=== PATIENT | female | born 1975 | race Caucasian/White ===

== ENCOUNTER → 2020-09-22 09:39 | Outpatient (CLI) | payer OTHER, SELFPAY ==
[2020-09-22 11:33] LABS: COVID19 -Nasal RAPID Negative (Negative)
== END ==
PROVIDERS: PCP General Practice; Visit Provider Surgery
DX: Z11.59 Encounter for screening for other viral diseases (principal)
CPT/HCPCS: 87635

== ENCOUNTER 2020-09-23 06:45 | Day surgery (SDC) | payer OTHER, SELFPAY ==
--- NOTE | 2020-09-23 | PATH_ITS ---
[facility] Accession Number: [id number] . 01 Material submitted: . PART A: duodenum - DUODENUM PART B: gastrointestinal site - STOMACH PART C: esophagus - DISTAL ESOPHAGUS . 01 Clinical history: . EGD/COLONOSCOPY . 02 Diagnosis: A. Duodenum, Biopsies: Duodenal mucosa with mildly increased intraepithelial lymphocytes and no significant blunting of the villous architecture. Please see comment. Negative for granulomas, dysplasia and malignancy. . B. Stomach, Biopsies: Antral mucosa with mild chronic gastritis and intestinal metaplasia. Negative for Helicobacter by immunohistochemistry. Negative for dysplasia and malignancy. . C. Distal Esophagus, Biopsy: Squamous mucosa with no diagnostic abnormality. Intraepithelial eosinophls are not increased. A PAS stain is negative for fungal organisms. Negative for dysplasia and malignancy. [facility] 09/28/2020 [facility] Local . 02 Comment: A. The duodenal mucosa shows essentially normal length villi with increased intraepithelial lymphocytes. The differential diagnosis of this variable villous abnormality includes partially treated or clinically latent celiac sprue, dermatitis herpetiformis, infectious gastroenteritis, stasis, tropical sprue, lymphocytic enterocolitis, or other protein allergies. In addition, similar small bowel histology can also be seen in patients with autoimmune disorders, idiopathic inflammatory bowel disease, and may be linked to the use of nonsteroidal anti-inflammatory drugs or Helicobacter pylori infection. There is no evidence of Whipple's disease and no obvious parasitic organisms are identified. . 02 Electronically signed: . Julissa Cerda MD, Pathologist NPI- [id number] . 01 Gross description: . A. Specimen A is received in formalin, labeled duodenum and consists of a 0.3 x 0.3 x 0.3 cm martin-pink fragment of soft tissue, which is entirely submitted in cassette A1. B. Specimen B is received in formalin, labeled stomach and consists of a 0.3 x 0.3 x 0.2 cm martin fragment of soft tissue, which is entirely submitted in cassette B1. C. Specimen C is received in formalin, labeled distal esophagus and consists of two martin-white fragments of soft tissue, measuring 0.3 x 0.3 x 0.2 cm in aggregate. The specimen is entirely submitted in cassette C1. (EA:[id number]) /[facility] 09/24/2020 [facility] . 02 Microscopic: . A. Additional levels were examined. . B. An immunohistochemical stain was performed to evaluate for Helicobacter organisms and is negative. The control stain showed appropriate reactivity. . C. An AB/PAS stain was performed to evaluate for fungal organisms and is negative. The control stain showed appropriate reactivity. . * This test was developed and its performance characteristics determined by [facility]. It has not been cleared or approved by the U.S. Food and Drug Administration. The FDA has determined that such clearance or approval is not necessary. This test is used for clinical purposes. It should not be regarded as investigational or for research. . 02 Pathologist provided ICD-10: D64.9, K92.9 . 02 CPT . 618696, 624508, 554010, 602026, O50170 Performed at: 01 [facility] [address] [place] [address], [place], [place] [id number] MD Eleazar Chaparro MD Phone: [phone] Performed at: 02 [facility] [place] [address] [place] [id number] MD Julissa Cerda MD Phone: [phone]
[2020-09-23 07:01] VITALS: BP 118/77; PULSE 83; RESP 18; TEMP 36.6; O2SAT 99; BMI 35.5
[2020-09-23] MEDS: SODIUM CHLORIDE 0.9% 1,000 ML 200 ML IV (07:15)
--- NOTE | 2020-09-23 07:43 | PM.PREOP ---
Pre-operative Note COVID-19 COVID-19 status: Negative Result date/Date tested (Pos, Neg/Pending): 09/22/20 Interval Note History & Physical reviewed/Exam performed by Physician: Yes Changes to H&P: No ASA Class (for procedural sedation): II
[2020-09-23] MEDS: LIDOCAINE 4% SOLN 50 ML 20 ML TOP (07:50)
[2020-09-23] MEDS: fentaNYL 250 MCG/5 ML INJ IV (08:10)
[2020-09-23] MEDS: MIDAZOLAM 5 MG/5 ML VIAL IV (08:10)
--- NOTE | 2020-09-23 08:20 | P.OP.ENDO_ITS ---
Operative Date/Time/Diagnoses Date of procedure: 09/23/20 Time of procedure: 08:20 Pre-op diagnosis: Anemia with unknown source, high risk family history for colon cancer, never had upper endoscopy or screening colonoscopy Post-op diagnosis: other (Mild gastritis, normal colon) Procedure & Clinicians Study performed: Esophagogastroduodenoscopy Biopsies of duodenum, stomach, distal esophagus using standard forceps Colonoscopy Procedural sedation performed by the endoscopist Same procedure as scheduled: Yes Indications: Anemia of unknown source, high risk family history for colon cancer, never had upper endoscopy or screening colonoscopy Surgeon: Vicky Theodore Procedure Notes SCOAP/Timeout: Performed Procedure in detail: The patient was brought to the room and placed in left lateral decubitus position with all bony prominences padded. A bite block was positioned in the patient's mouth to protect the lips, teeth, and tongue for the procedure. A time-out was performed and then the patient was given procedural s edation starting with mg of Versed and 10 mcg of fentanyl. Vitals were monitored throughout the procedure and remained stable. Once adequately sedated, the procedure was begun. The lubricated gastroscope was passed through the bite block and across the tongue and into the esophagus without incident. A tubular view of the esophagus was maintained as the scope was advanced through the esophagus and into the stomach. The scope was advanced through the stomach and to the pylorus. The scope was gently popped through the pylorus and into the duodenal bulb. The scope was flexed and advanced into the second and third portions of the duodenum. The duodenum and duodenal bulb appeared normal. The scope was withdrawn into the stomach. The stomach [appeared [place], with some very mild endoscopic gastritis. The scope was retroflexed and the gastric cardia was examined. The hiatus appeared normal, with no evidence of a gaping around the scope or a hiatal hernia. The scope was then straightened, and withdrawn into the esophagus. The Z-line [appeared normal. The distal esophagus appeared normal. Biopsies were taken of the duodenum, stomach, and distal esophagus using standard forceps. The scope was then withdrawn through the esophagus with a tubular view. The scope was then withdrawn from the patient and attention was turned to the colonoscopy portion of the procedure. A rectal exam was performed revealing no abnormalities. The colonoscope was then introduced to the rectum and advanced to the cecum in the usual fashion. The cecum was identified by the appendiceal orifice, the mucosal tri-fold, and the ileocecal valve. The scope was then retracted while rotating side to side and examining each mucosal fold. At the conclusion of the procedure retroflexion was performed and small grade 1-2 internal hemorrhoids without stigmata of bleeding were seen. The scope was then withdrawn from the rectum the procedure was concluded. The patient tolerated the procedure well and was transferred to the PACU in stable condition. Additional sedation was given during the colonoscopy portion of the procedure with 10 mg of Versed and 200 micro g of fentanyl combined total for both procedures. Scope withdrawal time: 8 Sedation minutes: 31 Findings: gastritis (Very mild, not likely a source of anemia) Post-procedure Recommendations: Colonscopy in 5 years (Due to high risk family history) and Other recommendation (Will send letter with final results from upper endoscopy biopsies. Follow-up with primary care provider regarding other potential sources of anemia.) Follow up: as needed Disposition: PACU
[2020-09-23 08:23] VITALS: BP 134/73; PULSE 77; RESP 10; O2SAT 95
[2020-09-23 08:28] VITALS: BP 110/65; PULSE 71; RESP 16; O2SAT 96
[2020-09-23 08:30] VITALS: BP 130/72; PULSE 71; RESP 12; TEMP 36.7; O2SAT 96
[2020-09-23 08:43] VITALS: BP 124/73; PULSE 83; RESP 16; TEMP 36.6; O2SAT 97
== END 2020-09-23 09:10 | disposition home or self-care (01) ==
PROVIDERS: PCP General Practice; Referring Provider General Practice; Visit Provider Surgery
PROC: 0DJ08ZZ Inspection of Upper Intestinal Tract, Via Natural or Artificial Opening Endoscopic (ICD-10-PCS; CPT 43235; principal; 2020-09-23 07:45)
PROC: 0DJD8ZZ Inspection of Lower Intestinal Tract, Via Natural or Artificial Opening Endoscopic (ICD-10-PCS; CPT 45378; 2020-09-23 07:45)
DX: K29.50 Unspecified chronic gastritis without bleeding (principal); D50.9 Iron deficiency anemia, unspecified; K21.9 Gastro-esophageal reflux disease without esophagitis; K64.0 First degree hemorrhoids; K92.9 Disease of digestive system, unspecified
CPT/HCPCS: 43239; 45378; 99152; 99153; J2250; J3010

== ENCOUNTER 2022-12-18 11:52 | Day surgery (SDC) | payer OTHER, SELFPAY ==
--- NOTE | 2022-12-18 | PATH_ITS ---
[facility] Accession Number: [id number] No. of containers..01 Tissue . 01 Material submitted: . duodenum - DUODENUM BIOPSY . 01 Diagnosis: Duodenum, Biopsy: Small bowel mucosa with focally increased intraepithelial lymphocytes and predominantly preserved villous architecture; please see comment. Negative for active inflammation, granulomas, dysplasia or malignancy. [facility] 12/22/2022 0900 Local . 01 Comment: The histologic findings are compatible with the reported clinical history of celiac disease. . 01 Electronically signed: . Ryan Encarnacion MD, PhD, Pathologist NPI- [id number] . 01 Gross description: . DUODENUM BIOPSY: Received in formalin are 2 fragment(s) of martin, soft tissue measuring 0.2 x 0.1 x 0.1 cm to 0.1 x 0.1 x 0.1 cm submitted entirely in 1 cassette(s) /CPE 12/19/2022 0735 Local . 01 Pathologist provided ICD-10: K90.0 . 01 CPT . 036201 Specimen Comment: A courtesy copy of this report has been sent to [phone] Performed at: 01 [facility] [address] [place] [address], [place], [place] [id number] MD Eleazar Chaparro MD Phone: [phone]
[2022-12-18] MEDS: LACTATED RINGERS 1,000 ML 42 ML IV (12:11)
--- NOTE | 2022-12-18 12:15 | PM.HP.1 ---
History of Present Illness History of Present Illness Date Patient Seen: 12/18/22 Time Patient Seen: 12:15 Chief complaint: EGD Narrative: History of inflammation noted on duodenal biopsies. History of possible celiac. Follow-up EGD for small bowel biopsies is pursued today. Patient History Medical History Anemia Depression Surgical History Hx of tubal ligation Family & Social History Family History Brother Rectal cancer Mother Breast cancer Father Colon cancer Grandmother Diabetes mellitus Social History: household members spouse,children Tobacco & Substance use: Smoking Status Never smoker alcohol intake current alcohol intake frequency holiday/special occasion Substance Use Type does not use Meds Home Medications and Allergies Home Medications Medication Instructions Recorded Confirmed Type omeprazole 20 mg capsule,delayed 20 mg DAILY ##0 01/26/17 06/06/22 History release ferrous fumarate 324 mg (106 mg 324 mg PO DAILY 07/21/20 06/06/22 History iron) tablet multivitamin 1 tab PO DAILY 10/27/20 06/06/22 History Allergies Allergy/AdvReac Type Severity Reaction Status Date / Time No Known Drug Allergies Allergy Verified 10/14/20 10:17 Review of Systems Review of Systems ROS: Yes All systems reviewed with the patient and are negative except as otherwise documented Exam Const General: cooperative HENMT Head: normal to inspection Eyes General: appearance normal, both eyes and all related structures Neck Neck: normal visual inspection Chest Chest: normal inspection of the chest Resp Effort & Inspection: normal respiratory effort Cardio Rate: regular rate GI Inspection: normal to inspection Skin General: no rashes or lesions noted Neuro General: patient alert and patient awake Extrem General: normal to inspection and no pedal edema Psych Appearance: grossly normal Assessment & Plan Assessment & Plan narrative: 47-year-old female with a personal history of possible celiac disease. She is been on a gluten free diet and EGD is undertaken today to evaluate for resolution of previously identified duodenitis. Time Spent With Patient Critical Care time: I spent a total of [] minutes of critical care time on this patient's care today; this time is exclusive of procedural time.
--- NOTE | 2022-12-18 12:16 | PM.PREOP ---
Pre-operative Note Interval Note History & Physical reviewed/Exam performed by Physician: Yes Changes to H&P: No ASA Class (for procedural sedation): I
[2022-12-18 12:26] VITALS: BP 124/77; PULSE 70; RESP 16; TEMP 36.5; O2SAT 97; BMI 33.0
--- NOTE | 2022-12-18 13:00 | PM.OP.EGD ---
Operative Date/Time/Diagnoses Date of procedure: 12/18/22 Time of procedure: 13:00 Pre-op diagnosis: History of duodenal mild inflammation and possible celiac disease repeat EGD is thus been requested. Post-op diagnosis: same Procedure & Clinicians Study performed: EGD with biopsies Same procedure as scheduled: Yes Indications: History of mild duodenal inflammation and possible celiac. Surgeon: Miguel Yo Procedure Notes SCOAP/Timeout: Done Procedure in detail: After the risks and benefits were explained, written and verbal informed consent was obtained. The patient was brought into the procedure room and placed into the left lateral decubitus position. Please see anesthesia notes for sedation details. The scope was introduced into the mouth through the bite block and advanced under direct visualization to the 2nd portion of the duodenum. The scope was slowly withdrawn carefully examining the mucosa for any defects or lesions. Retroflexed views were accomplished in the stomach. The stomach was decompressed, the scope was then removed from the patient who did not really tolerate the procedure very well. She coughed quite a bit making attempts at biopsies much higher risk. Complications: none Impression: 1. Duodenum: This was visually normal from the bulb through to the 2nd portion. I did not appreciate any atrophy or blunting of the mucosa. Biopsies were taken from D2. However the patient started to cough quite considerably during the case which made further biopsies dangerous to acquire. 2. Stomach: Minimal gastropathy was appreciated. No ulcers no mass lesions no outlet obstruction no significant mucosal pathology appreciated throughout. Because of the patient's suboptimal tolerance of the exam I did not linger to obtain repeat gastric biopsies. 3. Esophagus: The squamocolumnar junction correlated with the top of the gastric folds. GEJ was at 40 cm from the incisors. No acute erosive changes no strictures no mass lesions. The esophagus was unremarkable. Endoscopic diagnosis 1. Minimal gastropathy 2. Otherwise visually unremarkable EGD Post-procedure Plan for aftercare: Await histopathology. Follow up GI clinic. Disposition: PACU
[2022-12-18 13:05] VITALS: BP 114/78; PULSE 83; RESP 24; TEMP 36.2; O2SAT 96
[2022-12-18 13:11] VITALS: BP 116/72; PULSE 72; RESP 22; TEMP 36.1; O2SAT 94
[2022-12-18 13:13] VITALS: BP 112/74; PULSE 73; RESP 22; TEMP 35.9; O2SAT 96
[2022-12-18 13:20] VITALS: BP 112/74; PULSE 85; RESP 22; O2SAT 98
[2022-12-18 13:24] VITALS: BP 115/76; PULSE 68; RESP 21; TEMP 36.1; O2SAT 96
== END 2022-12-18 13:45 | disposition home or self-care (01) ==
PROVIDERS: Referring Provider Internal Medicine Gastroenterology; Visit Provider Internal Medicine Gastroenterology
PROC: 0DJ08ZZ Inspection of Upper Intestinal Tract, Via Natural or Artificial Opening Endoscopic (ICD-10-PCS; CPT 43235; principal; 2022-12-18 13:00)
DX: K31.9 Disease of stomach and duodenum, unspecified (principal)
CPT/HCPCS: 43239